=== PATIENT | female | born 1960 | race Caucasian/White ===

== ENCOUNTER 2023-11-04 08:04 | Outpatient (AMB) | payer OTHER, SELFPAY ==
--- NOTE | 2023-11-04 08:15 | AM.OFFWIN_ITS ---
Intake Vital Signs 11/04/23 08:16 Height 5 ft 3 in Weight 163 lb 2 oz BMI 28.9 BP 122/84 Blood Pressure Location Rt brachial Position Sitting Respiration 13 Pulse 91 Pulse Source Pulse Oximeter Temp 97.6 F Temp Source Temporal Artery Scan Pulse Oximetry (%) 99 Oxygen Delivery Method Room Air Intake Visit Reasons: ? Shingles Patient Tobacco Use Status: Never used Tobacco Robotic Technician Required: No Accompanied by: Self / Same As Patient Allergies No Known Allergies Allergy (Verified 11/04/23 08:37) Medication List - Last Reconciled 11/04/23 by Gretchen Reyes, [employer] SUPERVISOR- lisinopril 10 mg PO DAILY Do you need a note to return to daycare/school/sports/work: No HPI HPI Comments History of Present Illness Details Two days ago noticed bumps and itching on back of scalp worse since onset now painful can feel all of the time Denies systemic sx. Did not get Shingles vaccine admits using purple shampoo x2 prior to onset PFSH Social History Patient Tobacco Use Status: Never used Tobacco Review of Systems Const All systems reviewed & are unremarkable except as noted in HPI and below Physical Exam Vital Signs: Last Vital Signs Temp 97.6 F 11/04/23 08:16 Pulse 91 11/04/23 08:16 Resp 13 11/04/23 08:16 BP 122/84 11/04/23 08:16 Pulse Ox 99 11/04/23 08:16 Oxygen Delivery Method Room Air 11/04/23 08:16 BMI result Body Mass Index 28.9 Const Other: posterior scalp in a ring around the mid head from ear to ear is an erythematous mildly raised rash without blisters or drainage, some secondary excoriations w/o infection, not c/w shingles Assessment & Plan Assessment & Plan (1) Atopic dermatitis of scalp: Code(s): L20.9 - Atopic dermatitis, unspecified Plan: Rash is not consistent with shingles. More consistent with an atopic dermatitis. Which may or may not be related to the purple shampoo that she used. I advised her to stop using this purple shampoo right away. I have prescribed a steroid oil for her to use at night. Apply to scalp and apply a shower cap. Washer in the morning. Recommend using something like a Selsun blue or Nizoral as this can jig builder helper in the healing. Follow up in 1 week to ensure resolution. This note is constructed using voice recognition software. While every effort has been made to ensure accuracy in director of vocational training, still errors may have been included Sometimes, these errors may affect the content or meaning of the given sentence . Total time spent caring for the patient today was 30 minutes. This includes time spent before the visit reviewing the chart, time spent during the visit, and time spent after the visit on documentation Medications: New fluocinolone 0.01% apply to scalp nightly until healed 1 appl topical DAILY 118.28 mL 0RF Patient Instructions: Nizarol or Selsun Blue shampoo OTC Coding Level of Care Code Est Pt Level 4 (38203) Diagnoses Atopic dermatitis of scalp L20.9
[2023-11-04 08:16] VITALS: BP 122/84; PULSE 91; RESP 13; TEMP 36.4; O2SAT 99; BMI 28.9
== END 2023-11-04 08:49 | disposition home or self-care (01) ==
PROVIDERS: Visit Provider Nurse Practitioner Family
DX: L20.9 Atopic dermatitis, unspecified (principal)
CPT/HCPCS: 99214